=== PATIENT | male | born 1970 | race Hispanic/Latino ===

== ENCOUNTER 2021-05-27 10:26 | Emergency (ER) | payer OTHER ==
[~2021-05-27] VITALS: Ht 167.6 cm; Wt 90.7 kg
[2021-05-27 12:23] LABS: BASOPHILS % (AUTO) 0.2 % (0.0-5.0); EOSINOPHILS % (AUTO) 0.2 % (0.0-8.0); HEMATOCRIT 41.9 % (42-54); LYMPHOCYTES % (AUTO) 20.7 % (21.0-51.0); MEAN CORPUSCULAR HGB CONC 35.6 g/dL (32.0-36.0); MEAN CORPUSCULAR VOLUME 84.5 fL (79-99); MONOCYTES % (AUTO) 10.1 % (3.0-13.0); NEUTROPHILS % (AUTO) 68.5 % (40.0-77.0); PLATELET COUNT (AUTO) 149 K/uL (130-400); RED BLOOD CELL COUNT(AUTO) 4.96 MIL/uL (4.50-6.20); RED CELL DISTRIBUTION WIDTH 11.9 % (11.0-15.5)
[2021-05-27 12:31] LABS: CREATININE 0.8 mg/dL (0.5-1.5); POTASSIUM 3.8 mmol/L (3.5-5.1)
[2021-05-27 12:36] LABS: ALBUMIN 3.7 g/dL (3.5-5.0); TOTAL PROTEIN, SERUM 7.7 g/dL (6.0-8.3)
[2021-05-27 12:45] LABS: B-TYPE NATRIURETIC PEPTIDE 10 pg/mL (0-100)
[2021-05-27 12:57] LABS: ABG BASE EXCESS -2.4 mmol/L (-2.0-3.0); ABG HCO3 21.1 mmol/L (21.0-28.0); ABG OXYGEN SATURATION 95.6 % (95.0-99.0); ABG PCO2 33 mmHg (35-48)
[2021-05-27] MEDS ORDERED: ALBUHFA IH (13:53)
[2021-05-27] MEDS ORDERED: AMOX500C2 PO (13:53)
[2021-05-27] MEDS ORDERED: D ME PO (13:53)
[2021-05-27 14:11] VITALS: BP 135/74
== END 2021-05-27 14:12 | disposition home or self-care (01) ==
LOC: EEVIPCON 10:26 → EDH 10:26
DX: J40 Bronchitis, not specified as acute or chronic (principal); R06.2 Wheezing; E11.9 Type 2 diabetes mellitus without complications; E66.9 Obesity, unspecified; Z20.822 Contact with and (suspected) exposure to COVID-19; I10 Essential (primary) hypertension
CPT/HCPCS: 36415; 36600; 71045; 80053; 82803; 83605; 83880; 85025; 87040 ×2; 87635 ×2; 87804 ×2; 87880; 99284; C9803